=== PATIENT | female | born 1970 | race Caucasian/White ===

== ENCOUNTER → 2024-12-27 10:54 | Outpatient (REF) | payer OTHER, SELFPAY | LOC: RAD 10:54 | PROVIDERS: ATTENDING PHYSICIAN Obstetrics & Gynecology; FAMILY PHYSICIAN Family Medicine | DX: Z78.0 Asymptomatic menopausal state (principal) | CPT/HCPCS: 77080 ==

== ENCOUNTER 2025-02-09 03:13 | Inpatient (IN) | payer OTHER, SELFPAY ==
[2025-02-08] VITALS (12 sets, daily range): BP systolic 127–150; BP diastolic 79–96
[2025-02-08 21:30] LABS: Hematocrit 35.5 % (37.0-47.0); Hemoglobin 12.2 g/dL (12.0-16.0); Mean Corp Hgb Conc. 34.4 g/dL (33.0-37.0); Mean Corpuscular Volume 91.0 fL (81.0-99.0); Nucleated Red Blood Cells % 0 %; Platelet Count 252 10^3/uL (130-400); Red Cell Dist. Width 12.8 % (11.5-14.5)
[2025-02-08 21:45] LABS: ALT (SGPT) 15 U/L (0-35); AST (SGOT) 26 U/L (14-36); Albumin 4.7 g/dl (3.5-5.0); Alkaline Phosphatase 62 U/L (38-126); Blood Urea Nitrogen 22 mg/dl (7-17); Calcium 9.4 mg/dl (8.4-10.2); Carbon Dioxide 27 mmol/L (22-30); Chloride 107 mmol/L (98-107); Glucose 76 mg/dl (70-99); Potassium 3.9 mmol/L (3.5-5.1); Sodium 142 mmol/L (135-145); Total Protein 7.4 g/dl (6.3-8.2); eGFR > 60.00
[2025-02-08 21:56] LABS: Troponin I < 0.012 ng/ml
[2025-02-09] VITALS (22 sets, daily range): BP systolic 102–145; BP diastolic 64–94; BMI 28.3; BMI 28.8
[2025-02-09] MEDS: LOW STRENGTH ASPIRIN 324 MG PO (00:19)
[2025-02-09 01:11] LABS: Troponin I 0.045 ng/ml
[2025-02-09] MEDS: NITROSTAT (SUBLINGUAL) 0.4 MG SL ×4 (01:35→07:19)
[2025-02-09] MEDS: HEPARIN 25000 UNITS/250 ML IV ×2 (01:54→13:05)
[2025-02-09] MEDS: HEPARIN 4000 UNITS IV (01:54)
--- NOTE | 2025-02-09 02:08 | ED.GENMED ---
History of Present Illness
General
Chief Complaint: Chest Pain
Source: patient
Exam Limitations: none
Time Seen by Provider: 02/08/25 23:11
Nursing documentation reviewed up to this point in time: agreed with
History of Present Illness
History of Present Illness:
54-year-old female past medical history of previous cavernous hemangioma right parietal lobe previous PVCs was on metoprolol as needed presenting to the emergency department today with concerns of chest pressure that occurred after dinner roughly an
hour prior to arrival with radiation down the left arm. No significant shortness of breath nausea vomiting or diaphoresis. Denies similar symptoms in the past. She thought this could be anxiety and did take his Xanax without relief.
Past History
Past History
ED Past Medical History: Other (pvc's, due for cone bx due to dx of cervical cancer, cavernous hemangioma)
ED Past Surgical History: Other (breast augmentation)
Social History
Tobacco: Non-smoker
Alcohol: Occasional
Drug: None
Personal: Single
Living: with family
Review of Systems
Review of Systems
Allergies reviewed?: Yes
All Other Systems: ROS reviewed and negative except as documented in HPI and ROS
Phy Exam
Physical Exam
Physical Exam:
GENERAL: Alert , in no apparent distress
EYE: pupils equal and reactive
NECK: Supple, no significant adenopathy.
ENT: o/p clr, mmm.
CARDIAC: Regular rate and rhythm .
LUNGS: Clear breath sounds bilaterally, no acute respiratory distress, no wheezes/rales/rhonchi
ABDOMEN: Soft, without focal tenderness, no r/g, no cvat
NEUROLOGICAL: Alert and oriented, no focal neuro deficits
SKIN: Warm and dry, skin intact.
MUSCULOSKELETAL: No edema, well perfused.
PSYCH: Normal and appropriate interaction.
Scores
Heart Score for Chest Pain Patients
STEMI patient?: No
History: Slightly or Non-Suspicious
ECG: Normal
Age: >45 - <65 years
Risk Factors: 1 or 2 Risk Factors
Troponin: >1 - <3 x Normal Limit
Heart Score for Chest Pain Patients: 3
Heart Score Risk: 2.5% MACE over next 6 weeks
Course
Orders/Labs/Results
Orders:
Orders
02/08/25 21:18
Electrocardiogram (*1) Urgent
Reason for Study: Chest Pain
EKG- Treatment ONCE
02/08/25 21:24
Complete Blood Count/With Diff Urgent
Comprehensive Metabolic Panel Urgent
Troponin I Urgent
02/09/25 00:05
Electrocardiogram (*1) Urgent
Reason for Study: Chest Pain
EKG- Treatment ONCE
Aspirin Chewable [Low Strength Aspirin] 324 mg PO NOW STA
Chest [CR Chest - 2 Views ] Urgent
Comment:
Reason For Exam: CP left sided
02/09/25 00:20
Troponin I Urgent
02/09/25 01:29
Nitroglycerin Sublingual [Nitrostat (Sublingual)] 0.4 mg SL [id number] PRN
02/09/25 01:40
Heparin 4,000 units IV NOW STA
Nursing to Place Non Medication Order As Directed
Physician Order: PTT 6 hours after initial start of Heparin infusion
Above order entered?: Yes
02/09/25 01:45
PTT Urgent
Comment: Obtain baseline before beginning heparin infusion if not already collected
Heparin 15271 Units/250 ml 25,000 units in 250 ml IV PER PROTOCOL
Weight to be used for heparin protocol in kilograms (kg):: 79.6
Protocol:: Cardiac Tx/Acute Coronary
PTT Goal Range to be used:: PTT 73 to 111 seconds
Order type:: Initial
INITIAL Infusion Dose (UNITS/KG/hr) & then follow protocol:: 15 units/kg/hr
Infusion Dose in UNITS/hr & then follow protocol (UNITS/hr):: 1,200
INFUSION RATE in mL/hr & then follow protocol (mL/hr):: 12
PTT less than or equal to 64 seconds:: Increase rate by 200 units/hr (+ 2 mL/hr)
PTT 64.1 to 72.9 seconds:: Increase rate by 100 units/hr (+ 1 mL/hr)
PTT 73 to 111 seconds:: Target Range. No change in rate.
PTT 111.1 to 130.9 seconds:: Decrease rate by 100 units/hr (- 1 mL/hr)
PTT 131 to 199.9 seconds:: HOLD for 1 hr. Then decrease rate by 200 units/hr (- 2 mL/hr)
PTT greater than or equal to 200 seconds:: HOLD for 2 hrs & Notify Provider. Then decrease by 200 units/hr (-
2 mL/hr)
Lab follow-up:: Each change, PTT q6h until 2 consecutive are therapeutic. Then PTT
daily.
02/09/25 07:54
PTT Routine
Abnormal Lab Results
02/08/25 02/09/25
21:24 00:20
RBC 3.90 L 10^6/uL
(4.20-5.40)
Hct 35.5 L %
(37.0-47.0)
MCH 31.3 H pg
(27.0-31.0)
BUN 22 H mg/dl
(7-17)
Troponin I 0.045 H* D ng/ml
02/08/25 21:24
02/08/25 21:24
Vital Signs
Initial and Last Documented VS:
Initial Vital Signs
Temp Pulse Resp BP Pulse Ox
98.3 F 74 18 150/95 98
02/08/25 21:17 02/08/25 21:17 02/08/25 21:17 02/08/25 21:17 02/08/25 21:17
Last Documented Vital Signs
Temp Pulse Resp BP Pulse Ox
98.3 F 70 16 137/94 97
02/08/25 21:17 02/09/25 00:51 02/09/25 00:51 02/09/25 01:35 02/09/25 00:51
MDM/Problems Addressed
MDM/Problems Addressed:
54-year-old female presenting to the emergency department today with concerns of chest pain with radiation down the left arm. Initially EKG without specific ischemic changes. Vital signs normal. Initial labs normal troponin negative. Symptoms
did start within an hour of arrival to the ER. Thus troponin and EKG repeated. There was some subtle nonspecific changes to the EKG but no obvious ischemic changes. Patient was given an aspirin. Repeated troponin was elevated to 0.045 raising
concern for possible NSTEMI. Patient was subsequently started on heparin and admitted for further treatment. With the history of cavernous hemangioma the case was discussed with cardiology. They do recommend starting heparin this time.
*Pulse Oximetry
SaO2: 97
Oxygen Mode of Delivery: Room air
Patient hypoxic: no (97)
*Critical Care Note
Total Time (30-74mins, 75-104mins- exclusive of procedures): Not Applicable
ED Attending Note
-
Portions of this chart may have been created with voice recognition software.� Occasional wrong word or��sound alike� substitutions may have occurred due to the inherent limitations of voice recognition software.
Discharge Plan
Departure
Patient Disposition: Admit
Date of Disposition: 02/09/25
Time of Disposition: 02:11
Admit to: Telemetry
Admit to doctor: James
Presentation/result/management discussed w/ accepting MD/DO: Hospitalist
Patient with high blood pressure during this ER visit?: No
Condition: Good
Covid-19: Not Applicable
Discharge Problem:
Non-ST elevation PR (NSTEMI)
Prescriptions:
No Action
sumatriptan succinate 50 mg Tablet
50 mg PO ONCE PRN (Reason: migraine)
ciclopirox 8 % Solution
1 applic TOPICAL HSPRN PRN (Reason: apply to R big toe)
omeprazole 20 mg Capsule,Delayed Release(Dr/Ec)
20 mg PO DAILYPRN PRN (Reason: gerd)
metoprolol succinate 25 mg Tablet Extended Release 24 Hr
25 mg PO .SEE BELOW
Patient Comments:
02/08/2025, prescribed BID but pt. takes once a day in the morning.
cholecalciferol (vitamin D3) 25 mcg (1,000 unit) Capsule
25 mcg PO DAILY
mesalamine 1.2 gram Tablet,Delayed Release (Dr/Ec)
2.4 g PO DAILY
biotin
1 tab PO DAILY
Referrals:
Sadie Valencia DO [Family Provider, Family Practice]
Interventions
Interventions:
*Risk Screen - Suicide Last Done: 02/08/25 21:25
*General Assessment Last Done: 02/08/25 21:25
*Neglect/Abuse Screening Last Done: 02/09/25 01:37
*ED COVID-19 Vaccine History Last Done: 02/08/25 21:25
ED- Cardiac Assessment Last Done: 02/08/25 23:09
Discharge Date and Time
Print Language: K[place]
[2025-02-09 02:13] LABS: APTT 31.3 Sec (23.4-35.0)
--- NOTE | 2025-02-09 02:59 | HPS.HSE ---
Family Physician
-
Family Physician: Sadie Valencia
Chief Complaint
-
Chest Pain
History of Present Illness
Patient is a 54y F with PMH significant for PVCs, GERD and cavernous hemangioma who presents to ED complaining of chest pain. Patient states that she developed chest discomfort around 8 PM this evening - shortly after finishing dinner. Patient
describes the discomfort as 'burning pressure' and notes that it was in the upper chest with radiation into the neck / jaw. She had some aching discomfort in the LUE as well. Patient took a Xanax at home with no relief from her symptoms. Her
symptoms lasted for about 30-40 minutes at which point she presented to the ED for further evaluation.
Patient denies any associated diaphoresis, dyspnea or nausea. She denies any prior history of similar episodes. No personal history of CAD / SD.
Patient presented to the ED where she received SL NTG with significant improvement in her pain. She states that discomfort decreased from 5/10 to /10.
Medical History
Past Medical History
Past Medical History: Reports Other
Additional Past Medical History:
PACs / PVCs
Cavernous Hemangioma with Prior Bleeding
GERD / Hiatal Hernia
IBS
Migraines
Past Surgical History: Reports Other
Additional Past Surgical History:
Breast Augmentation
R Bunionectomy
Colposcopy / C[facility] Biopsy
Social History
Tobacco: Non-smoker
Alcohol: Occasional (6-8 drinks per week.)
Drug: None
Family History
Family History: Other (Mother / Father: Hypertension No family history of heart disease.)
Allergies / Home Medications
Allergies reflects when Allergies were last updated in [facility].
Home Medications with original date entered in [facility]
Allergy/Medication List:
Allergies
Allergy/AdvReac Type Severity Reaction Status Date / Time
ciprofloxacin (From Cipro) Allergy Rash Verified 07/24/25 21:27
[facility] ([facility]) Allergy Unknown Verified 02/08/25 21:27
Home Medications
biotin 1 tab PO DAILY 02/08/25
cholecalciferol (vitamin D3) 25 mcg (1,000 unit) capsule 25 mcg PO DAILY 02/08/25
ciclopirox 8 % topical solution 1 applic topical HSPRN PRN apply to R big toe 02/08/25
mesalamine 1.2 gram tablet,delayed release 2.4 g PO DAILY 02/08/25
metoprolol succinate 25 mg tablet,extended release 24 hr 25 mg PO .SEE BELOW 02/08/25
omeprazole 20 mg capsule,delayed release 20 mg PO DAILYPRN PRN gerd 02/08/25
sumatriptan succinate 50 mg tablet 50 mg PO ONCE PRN migraine 02/08/25
Review of Systems
-
History Source: Patient
A 12 point ROS was completed and negative except as noted: Yes
Constitutional: Denies Fever or Chills
EENT: Denies Sore Throat
Respiratory: Denies Cough or Trouble Breathing
Cardiac: Reports Chest Pain; Denies Diaphoresis, Palpitations or Syncope
Abdomen/GI: Denies Abdominal Pain, Nausea, Vomiting or Diarrhea
: Denies Dysuria or Frequency
Musculoskeletal: Denies Joint Pain or Edema
Neurological: Denies Dizzy or Headache
Physical Exam
Vital Signs
Vital Signs
Temp Pulse Resp BP Pulse Ox
98.3 F 67 12 137/94 97
02/08/25 21:17 02/09/25 02:30 02/09/25 02:30 02/09/25 01:35 02/09/25 02:30
Physical Exam
General: Other (54y F in no acute distress.)
HEENT: Moist mucous membranes and PERRLA
Respiratory: Clear; No Wheezes, Rales or Rhonchi
Cardiac: S1/S2 and Regular Rhythm; No Murmur
GI: Soft, Non Tender, Non Distended and Normal Bowel Sounds
Musculoskeletal: No Clubbing, No Cyanosis and No Edema
Neuro: AO x 3
Laboratory Results
-
02/08/25 21:24
02/08/25 21:24
Laboratory Results
APTT Cancelled 02/09/25 07:54
Total Bilirubin 0.5 mg/dl (0.2-1.3) 02/08/25 21:24
AST 26 U/L (14-36) 02/08/25 21:24
ALT 15 U/L (0-35) 02/08/25 21:24
Alkaline Phosphatase 62 U/L (38-126) 02/08/25 21:24
Troponin I 0.045 ng/ml H* D 02/09/25 00:20
Impression/Plan
-
A/P: Patient is a 54y F with PMH significant for GERD and cavernous hemangioma who presents to ED complaining of chest pain.
Chest Pain / ACS
- Admit for further evaluation and treatment.
- ? ACS v GERD based on description of symptoms, history, risk factors, etc.
- EKG with non-specific ST changes and no marked changes from prior tracings.
- Initial troponin undetectable and increased to 0.042 on second set.
- Pain much improved from initial arrival / original symptoms.
- Follow troponin to peak.
- Follow serial EKGs.
- Monitor for any new / recurrent symptoms.
- Cardiology evaluation in the AM for additional recommendations.
- Hold on IV heparin for now as patient pain-free with no significant EKG changes and with prior h/o MENTAL TESTER bleeding due to known hemangioma.
- Aspirin daily, continue Toprol. Check lipids, A1C, etc.
Cavernous Hemangioma
- Patient notes that this has been stable for years - but does have prior history of bleeding related to this lesion.
- No prior surgery / intervention / etc has been performed.
- Hold on anticoagulation for now as noted above.
- Monitor for any new symptoms, headaches, vision changes, etc.
GERD / Hiatal Hernia
- Symptom onset shortly after evening meal with radiation into the neck / throat and description of 'burning' quality.
- PPI BID for now.
- Consider GI evaluation if Cardiac evaluation proves unremarkable.
IBS
- Stable. Continue mesalamine.
DVT Prophylaxis: SCDs
Code Status: Full
[2025-02-09 05:28] LABS: Hematocrit 33.5 % (37.0-47.0); Hemoglobin 11.5 g/dL (12.0-16.0); Mean Corp Hgb Conc. 34.3 g/dL (33.0-37.0); Mean Corpuscular Volume 90.1 fL (81.0-99.0); Platelet Count 225 10^3/uL (130-400); Red Cell Dist. Width 12.7 % (11.5-14.5)
[2025-02-09 05:51] LABS: Blood Urea Nitrogen 19 mg/dl (7-17); Calcium 9.7 mg/dl (8.4-10.2); Carbon Dioxide 25 mmol/L (22-30); Chloride 109 mmol/L (98-107); Estimated Creatinine Clearance 84 ml/min; Glucose 90 mg/dl (70-99); HDL Cholesterol 68 mg/dl; LDL Cholesterol, Calculated 108 mg/dl; Potassium 4.0 mmol/L (3.5-5.1); Sodium 141 mmol/L (135-145); Very Low Density Lipoprotein 31 mg/dl (0-30); eGFR > 60.00
[2025-02-09 06:05] LABS: Troponin I 0.636 ng/ml
[2025-02-09] MEDS: LOW STRENGTH ASPIRIN 81 MG PO (07:18)
[2025-02-09] MEDS: TOPROL XL 25 MG PO ×2 (07:18→19:55)
[2025-02-09] MEDS: NSS (PRESERVATIVE FREE) 10 ML IV ×2 (07:21→19:55)
[2025-02-09] MEDS: PROTONIX IV 40 MG IV ×2 (07:21→19:55)
--- NOTE | 2025-02-09 07:56 | CON.CAR ---
Addendum entered and electronically signed by Andriy Ruiz MD 02/09/25 10:27:
I saw and examined the patient.
The Freight Sales Broker's note was reviewed and I agree with the note.
Comment:
GEN: No distress, awake, Ox3
HEENT: supple, anicteric, mmm
LUNGS: CTA, no wheezes/rales
CV: Reg, S1/S2, 1/6 syst LSB, no gallop
ABD: soft, BS+, NT/ND
EXT: No edema
NEURO: Gross non-focal
SKIN: No rash
Plan:
54-year-old female with past medical history of palpitations, GERD, migraines, and cavernous hemangioma presents with chest pressure and chest tightness last night. She took Xanax with no improvement and ultimately presented to the hospital. The
chest tightness radiated to her neck and down her left arm. First troponin was negative but repeat troponin increased up to 0.6. She states her cavernous hemangioma has been stable with no recent bleeding. Last bleed was in 2003. Her chest pain
was resolved with nitroglycerin last night and she had a recurrence of pain this morning which required 3 nitroglycerin.
Non-STEMI. Continue aspirin, metoprolol, and start atorvastatin 40 mg daily. Check lipids.
Blood pressure is on the low side. Will consider SAIMA inhibitor if BP stable. Hold for now.
Check echocardiogram.
With cavernous hemangioma we will proceed with head CT to rule out any significant pathology. Appreciate neurology evaluation and plan will be to likely proceed with cardiac cath today.
Original Note:
Consultation
Consultation Request
Date/Time Consultation Performed: 02/09/25
Requesting Provider: Dr. Ramirez
Performing Provider: Melissa Nelson PA-C for Dr. Ruiz
Reason for Consultation: NSTEMI
Medical History
-
Chief Complaint: CP
History of Present Illness:
Patient is a 54-year-old female with past medical history of palpitations, GERD, migraines and cavernous hemangioma who presents to [facility] due to complaints of chest pain. She reports last night after dinner she developed acute onset of central
chest tightness and burning with radiation up to her neck and down to her left arm. She was concerned she was having a panic attack and took a Xanax without improvement. As the pain persisted over 40 minutes, she opted to come to the ER for
further evaluation. Initial troponin negative, however trending up, most recent 0.6. She was initially placed on heparin, however given her history of cavernous hemangioma with prior bleeding heparin was stopped. She reports her most recent bleed
was in 2003 and most recent imaging was in 2008. She is not routinely followed by a neurologist for this. She states she typically can tell when she is having bleeding as she gets headaches. She required nitro x 3 this morning due to recurrence
of pain and is presently pain-free. EKG is without acute ST abnormalities. Cardiology consulted for evaluation
PMH:
palpitations
GERD
migraines
Cavernous hemangioma
Past Medical History
Past Medical History: Other (in HPI)
Social History
Tobacco: Non-Smoker
Alcohol: Other (6-8 drinks per week)
Living: With Family
Employment: Employed
Family History
Family History: Hypertension
Allergies / Home Medications
Allergy/AdvReac Type Severity Reaction Status Date / Time
ciprofloxacin (From Cipro) Allergy Rash Verified 02/08/25 21:27
levofloxacin (From Levaquin) Allergy Unknown Verified 02/08/25 21:27
�Medication �Instructions �Recorded �Confirmed �Type
biotin 1 mg tablet 1 mg PO DAILY 02/08/25 02/08/25 History
cholecalciferol (vitamin D3) 25 25 mcg PO DAILY 02/08/25 02/08/25 History
mcg (1,000 unit) capsule
ciclopirox 8 % topical solution 1 applic topical HSPRN PRN apply 02/08/25 02/08/25 History
to R big toe
mesalamine 1.2 gram tablet,delayed 2.4 g PO DAILY 02/08/25 02/08/25 History
release
metoprolol succinate 25 mg 25 mg PO DAILY 02/08/25 02/09/25 History
tablet,extended release 24 hr
omeprazole 20 mg capsule,delayed 20 mg PO DAILYPRN PRN gerd 02/08/25 02/08/25 History
release
sumatriptan succinate 50 mg tablet 50 mg PO DAILYPRN PRN migraine 02/08/25 02/09/25 History
Review of Systems
-
History Source: Patient and Family
All other systems: Negative unless noted
Physical Exam
Vital Signs
Temp Pulse Resp BP Pulse Ox
98.3 F 62 13 116/78 98
02/08/25 21:17 02/09/25 07:18 02/09/25 06:00 02/09/25 07:19 02/09/25 07:37
Lab Results
02/09/25 05:14
02/09/25 05:14
Troponin I 0.636 ng/ml H* D 02/09/25 05:14
Physical Exam
General: No Apparent Distress and Comfortable
HEENT: Normocephalic, Anicteric and Moist Mucous Membranes
Respiratory: Clear and Non Labored Respirations
Cardiac: S1/S2 and Regular Rhythm
GI: Soft, Non Tender, Non Distended and Normal Bowel Sounds
Musculoskeletal: No Clubbing, No Cyanosis and No Edema
Skin: Warm and Dry
Neuro: AO x 3
Impression / Plan
-
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 CONNIE Maria
Assessment:
Presentation with chest and arm pain
NSTEMI
palpitations
GERD
migraines
Cavernous hemangioma
ECHO 08/2022: EF 55 to 60%, mild MAC, trace MR, normal aortic valve and right heart
ECHO 02/09/25: pending
Plan:
- Patient presents with acute onset of central chest and left arm pain. Has ruled in for NSTEMI with peak troponin thus far of 0.6
- Trend troponins to peak
- Presently chest pain-free, however did require 3 nitro this morning for resolution of pain
- Check echo, last from 2022 as above
- in SR on review of tele
- N.p.o. for cardiac catheterization today
- Given history of cavernous hemangioma with prior bleeding, consult neurology for evaluation. not presently on IV heparin due to this. Need to make sure she is okay to receive heparin, and potentially dual antiplatelet therapy for at least a year.
Last imaging was in 2008, so would consider repeating
- Continue aspirin 81 mg daily. Received 324 mg in ER
- Continue outpatient Toprol
- LDL 108. Start statin
- Discussed with nursing
- Discussed with patient and daughter at bedside
Data Reviewed
-
EKG: Tracing Personally Visualized and interpreted
Medical Tests (Nuc Med, Echo etc): Report Reviewed by me
Labs: Labs Reviewed by me
Old Records: Reviewed
--- NOTE | 2025-02-09 08:52 | CON.NEURO4 ---
Addendum entered and electronically signed by Justice Thomason MD 02/09/25 12:06:
Studies reviewed.
I have personally examined the patient. I reviewed and agree with the SLURRY TANK TENDER's Note.
My addenda:
Awake, alert, interactive. No acute distress.
Speech intact.
Follows 2-step requests w/o difficulty. No tremor.
Extra-ocular movements grossly intact.
Facial movements full and symmetric. Hearing intact to normal conversational volume.
Normal UE movements bilaterally.
Neck: full ROM.
Chest: no dyspnea
Heart: no JVD
Ext: (-) Clubbing, (-) Cyanosis, (-) Edema
IMPRESSIONS/RECOMMENDATIONS:
Abrupt onset of left arm sensation change and prior history of right parietal cavernous angioma
CT of the head performed today to reevaluate the patient's cavernous angioma was however suggestive of a surprising, left frontal centrally calcified mass which most likely represents either meningioma or metastasis. The location of the mass and
edema suggest the possibility of a low-grade glioma
From the perspective of the cavernous angioma, there are no concerns regarding the use of heparin and/or antiplatelet agents
Will initiate dexamethasone 10 mg IV x 1 then 4 mg every 6 hours with initiation of H2 rosy
Reviewed with neurosurgery at [facility]
D/W patient / family / nursing
All questions answered.
Will continue to follow as needed.
Original Note:
Documented by User: Gail Nascimento NP 02/09/25 09:49
Consultation - Neurology 4
-
CONSULTING PHYSICIAN: Justice Thomason MD
REFERRING PHYSICIAN: Cardiology/Melissa Nelson PA-C
DICTATED BY: DIANNA Gutierrez
DATE/TIME OF REQUEST: 02/09/25
DATE/TIME OF CONSULTATION: 02/09/25
Reason for Consultation: Cavernous Hemangioma
History of Present Illness:
This is a 54-year-old female who has presented to the hospital with report of chest tightness and a burning sensation radiating down her left arm. Patient is being followed by Cardiology with consideration for heparin usage and cardiac cath.
Neurology is consulted due to patient's history of a cavernous hemangioma and concern for intracranial hemorrhage with heparin usage.
Patient reports that in the early 1989' she had an intracranial hemorrhage, not requiring surgery, and the cause was unknown at that time. She was in her usual state following that event, until 2003 when she started having severe headaches. She
reports that she might have been hospitalized at [facility] at that time, but she cannot recall. She notes that her CT Head imaging was concerning for an AVM, but MRI brain imaging was read as a right parietal lobe cavernous hemangioma. She
was then again in her usual state until 2009 at which time she was taking Levaquin for an infection and suddenly started having spatial awareness issues with her right upper extremity. She was hospitalized at [facility] and
was evaluated by neurology Dr. Garnett. There was no change to her cavernous hemangioma at that time, her symptoms were attributed to Levaquin usage. She does note that Dr. Garnett told her that if the hemangioma bleeds again, he would
recommend surgical intervention at that time, so far, there has been no further bleeding.
Currently, she denies any headache, dizziness, vision changes, speech/swallow difficulty, numbness, and weakness. She reports a history of migraines with aura; she has about 3-4 per year. She is taking sumatriptan for migraine relief. She takes
this at aura onset, and her aura resolves within 30 minutes.
Past Medical History: Cavernous hemangioma, migraine with aura, anxiety, PVC's, GERD
Surgical History: Breast augmentation, right foot bunionectomy
Family History: Reviewed and noncontributory.
Social History: Denies tobacco and illicit drug use. Almost daily alcohol.
Allergies: Ciprofloxacin, levofloxacin.
Home Medications: See below.
Review of Symptoms:
Patient denies any fever, headache, chest pain, shortness of breath, GI or symptoms.
�Per the HPI.�All systems are reviewed negative except above.
Physical Exam:
The patient is afebrile, abdomen is nondistended, breathing is unlabored, skin is warm and dry, no edema.
NIH Stroke Scale:
I performed the NIH stroke scale on the patient on 02/09/25 at 0900. The patient scored 0 points on the NIH stroke scale assessment, which were assigned as follows: See below.
Neurologic Examination:
The patient is awake, alert and oriented x 3. She is able to follow commands and answer questions appropriately. There is no aphasia or dysarthria. On cranial nerve assessment, pupils are 3 mm bilateral, round and reactive to light and
accommodation. Visual jauregui are full. Extraocular movements are intact. Facial sensations are intact and bilaterally symmetrical, there is no facial asymmetry. Hearing is intact bilaterally to normal conversation volume. Tongue palate and uvula are
midline. Sternocleidomastoid strengths are full bilaterally. Motor strengths are 5/5 bilateral upper and lower extremities on medical research [place] scale. There is no drift or involuntary movement noted. Deep tendon reflexes are 2+ bilateral
upper and lower extremities and Babinski is absent bilaterally. There was no extinction noted on double simultaneous stimulation. Coordination is intact by finger to nose bilaterally.
Lab Results: See below.
Neuro Imaging:
1. CT Head 02/09/25: pending.
Differentials for the patient's presentation include:
1. Cavernous hemangioma, currently asymptomatic.
2. New onset chest pain.
Recommendations:
-CT Head noncontrast pending to establish a baseline.
-Goal normotension.
-LDL goal <70. LDL is 108. Would initiate atorvastatin 40mg daily.
-From Neurology's standpoint, patient is okay proceed with cardiac care/catheterization involving heparin usage.
-Please contact our Neurology service urgently if patient experiences a severe headache or change in mental status.
Discussed patient care with: Dr. Thomason, the patient, patient's daughter
Vital Signs and Labs
-
Vital Signs and Labs:
Vital Signs
Temp Pulse Resp BP Pulse Ox
98.3 F 62 13 110/76 98
02/08/25 21:17 02/09/25 07:18 02/09/25 06:00 02/09/25 07:24 02/09/25 07:37
Lab Results
02/09/25 05:14
02/09/25 05:14
APTT Cancelled 02/09/25 07:54
Sodium 141 mmol/L (135-145) 02/09/25 05:14
Potassium 4.0 mmol/L (3.5-5.1) 02/09/25 05:14
BUN 19 mg/dl (7-17) H 02/09/25 05:14
Glucose 90 mg/dl (70-99) 02/09/25 05:14
Calcium 9.7 mg/dl (8.4-10.2) 02/09/25 05:14
LDL Cholesterol, Calc 108 mg/dl 02/09/25 05:14
Medications
-
Active Medications
Generic Name Dose Route Start Last Admin
Trade Name Freq PRN Reason Stop Dose Admin
Acetaminophen 650 mg 02/09/25 05:05
Acetaminophen 325 Mg Tablet PO 03/09/25 05:04
Q4HPRN PRN
Mild Pain / Temp > 101
Aspirin 81 mg 02/09/25 08:00 02/09/25 07:18
Aspirin 81 Mg Chewable Tablet PO 03/09/25 07:59 81 mg
DAILY WANDA Administration
Atorvastatin Calcium 40 mg 02/09/25 18:00
Atorvastatin (Lipitor) 40 Mg Tablet PO 03/09/25 17:59
QPM WANDA
Metoprolol Succinate 25 mg 02/09/25 08:00 02/09/25 07:18
Metoprolol 25 Mg Extended Release Tablet PO 03/09/25 07:59 25 mg
BID WANDA Administration
Nitroglycerin 0.4 mg 02/09/25 05:05 02/09/25 07:19
Nitroglycerin 0.4 Mg Sl Tablet SL 03/09/25 05:04 0.4 mg
[id number] PRN Administration
Chest Pain
Mesalamine 1.2 Gram 0 grams 02/09/25 08:00
Tablet,Delayed PO 03/09/25 07:59
Release (Dr/Ec) Take DAILY WANDA
2 Tablets (2.4
Grams) Po Daily
Pantoprazole Sodium 40 mg 02/09/25 08:00 02/09/25 07:21
Pantoprazole Sodium 40 Mg/10 Ml Vial IV 03/09/25 07:59 40 mg
BID WANDA Administration
Sodium Chloride 0 flush 02/09/25 06:00
Sodium Chloride 0.9% (Flush) Syringe IV 03/09/25 05:59
PER PROTOCOL WANDA
Sodium Chloride 10 ml 02/09/25 08:00 02/09/25 07:21
Sodium Chloride 0.9% (Preservative Free) 10 Ml Vial IV 03/09/25 07:59 10 ml
BID WANDA Administration
Home Medications
�Medication �Instructions �Recorded
biotin 1 mg tablet 1 mg PO DAILY 02/08/25
cholecalciferol (vitamin D3) 25 25 mcg PO DAILY 02/08/25
mcg (1,000 unit) capsule
ciclopirox 8 % topical solution 1 applic topical HSPRN PRN apply 02/08/25
to R big toe
mesalamine 1.2 gram tablet,delayed 2.4 g PO DAILY 02/08/25
release
metoprolol succinate 25 mg 25 mg PO DAILY 02/08/25
tablet,extended release 24 hr
omeprazole 20 mg capsule,delayed 20 mg PO DAILYPRN PRN gerd 02/08/25
release
sumatriptan succinate 50 mg tablet 50 mg PO DAILYPRN PRN migraine 02/08/25
NIH Stroke Score
Subsequent NIH Scale
Date of Subsequent NIH Scale: 02/09/25
Time of Subsequent NIH Scale: 09:00
NIH Stroke Score
Level of Consciousness: 0 - Alert
LOC Questions: 0-Answers both correctly
LOC Commands: 0-Performs both correctly
Best Horizontal Gaze: 0-Normal
Visual Jauregui: 0=Normal, no visual loss
Facial Palsy: 0=Normal, symmetrical
Motor - Right Arm: 0=No drift 10 seconds
Motor - Left Arm: 0=No drift 10 seconds
Motor - Right Le-No drift 5 seconds
Motor - Left Le-No drift 5 seconds
Limb Ataxia: 0-Absent
Sensation: 0-Normal
Best Language: 0-No aphasia
Dysarthria: 0-Normal
Extinction and Inattention: 0-No abnormality
NIH Total Score:: 0
Modified [place] (mRS) Score
Modified [place] Scale (mRS): No symptoms
Score: 0

Documented by User: Justice Thomason MD 02/09/25 11:44
NIH Stroke Score
NIH Stroke Score
NIH Total Score:: 0
Modified [place] (mRS) Score
Score: 0
[2025-02-09 09:08] LABS: Glycohemoglobin (HgbA1c) 5.4 % (4.0-5.6)
--- NOTE | 2025-02-09 10:41 | W.PN.HOSP.TC ---
Addendum entered and electronically signed by Carlos Eduardo Smith MD 02/09/25 16:35:
Ct scan of head demonstrated 2.9 cm slightly hyperdense mass within the left frontal lobe with surrounding vasogenic edema and mild mass effect.
concern for neoplastic lesion. Decision was made to hold on cardiac intervention, in case pt required stenting and thus need for DAPT. Discussed with Dr. Thomason, who was kind enough to contact Dr. Hossein Briscoe, neurosurgery who will be accepting
pt on his service.
I contacted [facility] and eventually completed arrangements for her to be transferred down there. Completed forms and spoke to OBEY Ansari
Awaiting bed available for her to be transported.
Original Note:
Today's Communication/Plan
-
Potential heart catherization, as per cardio
Assessment / Plan
Assessment / Plan
A/P: Patient is a 54y F with PMH significant for GERD and cavernous hemangioma who presents to ED complaining of chest pain.
Chest Pain / ACS
- ? ACS v GERD based on description of symptoms, history, risk factors, etc.
- EKG with non-specific ST changes and no marked changes from prior tracings.
- Initial troponin undetectable and increased to 0.042 on second set-->0.636
- Pain much improved from initial arrival / original symptoms.
- Follow troponin to peak.
- Follow serial EKGs.
- Monitor for any new / recurrent symptoms.
- Cardiology evaluation appreciated
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
- Aspirin daily, continue Toprol.
LDL 108
Hga1C 5.4%
Cavernous Hemangioma
- Patient notes that this has been stable for years - but does have prior history of bleeding related to this lesion.
- No prior surgery / intervention / etc has been performed.
- Hold on anticoagulation for now as noted above.
- Monitor for any new symptoms, headaches, vision changes, etc.
Neuro consult appreciated
Head CT just performed, await official reading, left anterior changes noted
GERD / Hiatal Hernia
- Symptom onset shortly after evening meal with radiation into the neck / throat and description of 'burning' quality.
- PPI BID for now.
- Consider GI evaluation if Cardiac evaluation proves unremarkable.
IBS
- Stable. Continue mesalamine.
DVT Prophylaxis: SCDs
Code Status: Full
Anticipated Discharge: 24 - 48 hours
Subjective/Interval History
-
Date of Service: February 09, 2025
Chest pain yesterday resolved with 1 NTG, episode today took 3 NTG to resolve
Objective Data
-
Labs:
Laboratory Results
02/09/25 02/09/25 02/09/25
01:45 05:14 07:54
WBC 7.3
Hgb 11.5 L
Hct 33.5 L
Plt Count 225
APTT 31.3 Cancelled
Sodium 141
Potassium 4.0
Chloride 109 H
Carbon Dioxide 25
BUN 19 H
Creatinine 0.8
Glucose 90
Calcium 9.7
Vital Signs:
Vital Signs
Temp Pulse Resp BP Pulse Ox
98.3 F 63 16 145/88 98
02/08/25 21:17 02/09/25 10:36 02/09/25 10:36 02/09/25 10:00 02/09/25 07:37
Review of Systems
-
History Source: Patient, Family (dgt in room) and Coordinated Provider
Constitutional: Denies Fever
EENT: Reports No Symptoms Reported
Respiratory: Reports No Symptoms; Denies Cough
Cardiac: Reports Chest Pain (substernal radiating into left arm )
Abdomen/GI: Reports No Symptoms
Musculoskeletal: Reports No Symptoms
Neuro: Reports No Symptoms
Physical Exam
-
General: Well Developed, Well Nourished and No Apparent Distress
HEENT: Normocephalic, Atraumatic and Moist Mucous Membranes
Respiratory: Clear to Auscultation; Negative Wheezes, Rales or Rhonchi
Cardiac: Regular Rhythm, S1/S2 and Other (chest wall nontender)
GI: Soft, Nontender (no tenderness over RUQ or epigastric area) and Nondistended
Musculoskeletal: No Clubbing, No Cyanosis and No Edema
Neuro: Awake, Alert and Oriented
--- NOTE | 2025-02-09 11:01 | CM ---
Addendum entered by Priyanka Adler 02/09/25 13:28:
CM called to confirm insurance [facility], updated insurance card given to the ammunition components inspector to scan. Per [facility] Jack insurance is accepted to [place] and CM provided reference number for phone call to patient. Plan is for transfer to [facility] [place]. CM will continue to follow for discharge planning needs.
Original Note:
Patient seen at bedside with daughter present in ED. Patient states that she lives with her significant other in a one story home with no steps. Patient has no DME and no needs at this time anticipated. [facility] uses [facility] [place] and her PCP
is Dr. Valencia. Patient plan is for discharge home with no needs at this time. CM will continue to follow for discharge planning needs.
Plan; home with no needs; watch for medical treatment plan recommendations.
[2025-02-09] MEDS: TYLENOL 650 MG PO (11:30)
[2025-02-09 12:11] LABS: Troponin I 0.753 ng/ml
[2025-02-09] MEDS: DECADRON 10 MG IV (12:18)
[2025-02-09] MEDS: PEPCID 20 MG IV (12:24)
--- NOTE | 2025-02-09 16:32 | CM ---
Pricing on Brilinta 90mg through the patient's [facility] is a $0 copay for the brand. The generic is not covered. It is in stock at the patient's [facility].
[2025-02-09 18:54] LABS: APTT 56.7 Sec (23.4-35.0)
[2025-02-09 19:21] LABS: Troponin I 0.279 ng/ml
--- NOTE | 2025-02-10 07:31 | W.DS.TRANS ---
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
-
Discharge Instructions:
Discharge Diagnosis/Procedures Left frontal mass in brain, chest pain with
elevated troponin and concern for ACS
Diet Regular
Activity No strenuous activity
Driving Restrictions No driving
Bathing Restrictions None
Instructions:
Stand-Alone Forms:
Changes to Home Medications: No
Discharge Medications:
DC Medications w/original date entered in [employer]
biotin 1 mg tablet 1 mg PO DAILY Supplement 02/08/25
cholecalciferol (vitamin D3) 25 mcg (1,000 unit) capsule 25 mcg PO DAILY Supplement 02/08/25
ciclopirox 8 % topical solution 1 applic topical HSPRN PRN apply to R big toe 02/08/25
mesalamine 1.2 gram tablet,delayed release 2.4 g PO DAILY Gastrointestinal Issue 02/08/25
metoprolol succinate 25 mg tablet,extended release 24 hr 25 mg PO DAILY Blood Pressure 02/08/25
omeprazole 20 mg capsule,delayed release 20 mg PO DAILYPRN PRN gerd 02/08/25
sumatriptan succinate 50 mg tablet 50 mg PO DAILYPRN PRN migraine 02/08/25
Home Medication Changes
Pending Results: No
== END 2025-02-10 07:27 | disposition short-term general hospital (02) | DRG 280 ==
LOC: ED 03:13
PROVIDERS: Emergency Medicine; Physician Assistant; ADMITTING PHYSICIAN Hospitalist; ATTENDING PHYSICIAN Internal Medicine; CONSULT PHYSICIAN Psychiatry & Neurology Neurology; EMERGENCY PHYSICIAN Student in an Organized Health Care Education/Training Program; FAMILY PHYSICIAN Family Medicine; OTHER PHYSICIAN Internal Medicine Cardiovascular Disease
DX: I21.4 Non-ST elevation (NSTEMI) myocardial infarction (principal); G93.6 Cerebral edema; K21.9 Gastro-esophageal reflux disease without esophagitis; K58.9 Irritable bowel syndrome, unspecified; Z82.49 Family history of ischemic heart disease and other diseases of the circulatory system; Z88.1 Allergy status to other antibiotic agents; F41.9 Anxiety disorder, unspecified; I10 Essential (primary) hypertension; Z79.82 Long term (current) use of aspirin
CPT/HCPCS: 70450; 71046; 80048; 80053; 80061; 83036; 84484; 85025; 85027; 85730; 93005; 93306; 96365; 99285